=== PATIENT | male | born 1985 | race Two or more races ===

== ENCOUNTER 2024-04-04 20:56 | Emergency (ER) | payer SELFPAY ==
[2024-04-04 21:01] VITALS: BP 148/87; PULSE 108; RESP 20; TEMP 98.1; BMI 29.2
[2024-04-04 21:48] LABS: HEMATOCRIT 38.7 % (35.4-49); HEMOGLOBIN 12.9 G/dL (11.7-16.9); MCH 30.6 pg (25.7-33.7); MCHC 33.3 g/dl (32.0-35.9); MEAN CELL VOLUME 92.1 fl (80-96); MEAN PLT VOLUME 7.9 fl (7.5-11.1); PLATELET COUNT 267.1 10^3/uL (134-434); RDW 13.3 % (11.9-15.9); WHITE BLOOD COUNT 12.3 10^3/uL (4.0-10.8)
[2024-04-04] MEDS ORDERED: KETOROLAC TROMETHAMINE 30 MG/1 ML VIAL ONE (21:50)
[2024-04-04] MEDS ORDERED: ACETAMINOPHEN INJECTION 100 ML IVPB ONE (21:51)
[2024-04-04] MEDS: ACETAMINOPHEN 1000 MG/100 ML BAG IVPB ONE (21:59)
[2024-04-04] MEDS: KETOROLAC TROMETHAMINE 30 MG/1 ML VIAL IVPUSH ONE (22:01)
[2024-04-04 22:14] LABS: ALBUMIN 4.5 g/dl (3.4-5.0); ALK PHOS 87 U/L (45-117); ANION GAP 7 mmol/L (4-13); BILIRUBIN,TOTAL 0.4 mg/dl (0.2-1); CALCIUM 9.2 mg/dl (8.5-10.1); CHLORIDE 103 mmol/L (98-107); CO2 29 mmol/L (21-32); CREATININE 1.2 mg/dl (0.6-1.3); GLUCOSE,RANDOM 104 mg/dl (74-106); POTASSIUM 3.8 mmol/L (3.5-5.1); SGOT/AST 17 U/L (15-37); SGPT/ALT 16 U/L (7-52); SODIUM 139 mmol/L (136-145); TOT PROT 7.1 g/dl (6.4-8.2)
[2024-04-04 22:18] LABS: PLATELET ESTIMATE SLT INCREASE
[2024-04-04] MEDS ORDERED: AMOX TR/POT CLAV 875MG/125MG TABLETS (FP) ONE (22:33)
[2024-04-04] MEDS: AMOX TR/POT CLAV 875MG/125MG TABLETS (FP) PO ONE (22:44)
== END 2024-04-04 22:50 | disposition home or self-care (01) ==
LOC: FER 20:56
PROC: 3E033NZ Introduction of Analgesics, Hypnotics, Sedatives into Peripheral Vein, Percutaneous Approach (ICD-10-PCS; principal; 2024-04-04)
PROC: 3E03329 Introduction of Other Anti-infective into Peripheral Vein, Percutaneous Approach (ICD-10-PCS; 2024-04-04)
DX: M79.89 Other specified soft tissue disorders (principal); M25.521 Pain in right elbow; W01.0XXA Fall on same level from slipping, tripping and stumbling without subsequent striking against object, initial encounter; Y93.67 Activity, basketball
CPT/HCPCS: 36415; 73070-TC-RT-FY; 80053; 85027; 99284-25; J0131